=== PATIENT | female | born 1990 | race Caucasian/White ===

== ENCOUNTER 2021-03-12 17:36 | Emergency (ER) | payer BC ==
[~2021-03-12 17:36] MED LIST: AMOXICILLIN/CL875 MG PO; DEBROX6.5 % AU; ERRIN0.35 MG PO; FLONASE NASAL50 MCG; MUCINEX600 MG; MUPIROCIN2 % EX; PHENERGAN SUPP RE
[2021-03-12 18:16] LABS: IMMATURE GRANULOCYTES 0.4 % (0.0-5.0); MEAN CORPUSCULAR HGB 27.6 pG CALC (26.0-32.0); MEAN CORPUSCULAR HGB CONC 33.7 g/dL CAL (32.0-36.0); NEUT# 5.37 thou/uL (2.00-7.15); RED BLOOD COUNT 4.71 mill/uL (4.20-5.60); RED CELL DISTRI WIDTH 12.4 % (11.5-15.5)
[2021-03-12 18:17] LABS: HEMATOCRIT 38.6 % (37.0-47.0)
[2021-03-12 18:28] LABS: ANION GAP 14 (6-22 (CALC)); BUN 14 mg/dL (7-17); BUN/CREATININE RATIO 19 (12-20 (CALC)); CARBON DIOXIDE 23 mmol/l (22-30); CHLORIDE 104 mmol/l (95-108); CREATININE 0.7 mg/dL (0.5-1.0); GFR > 60 ML/MIN (>=60 (CALC)); GFR FOR AFR.AMER. > 60 ML/MIN (>=60 (CALC)); POTASSIUM 3.8 mmol/l (3.5-5.1); SODIUM 138 mmol/l (137-146)
[2021-03-12] MEDS ORDERED: NORVASC5 M1 PO (18:54)
[2021-03-12 20:05] VITALS: BP 164/88
== END 2021-03-12 20:18 | disposition home or self-care (01) | DRG 305 ==
LOC: ED 17:36
PROVIDERS: Family Medicine
DX: I10 Essential (primary) hypertension (principal); Z82.49 Family history of ischemic heart disease and other diseases of the circulatory system; Z82.3 Family history of stroke

== ENCOUNTER 2022-02-26 10:12 | Emergency (ER) | payer BC ==
[~2022-02-26] VITALS: Ht 162.6 cm; Wt 72.0 kg
[~2022-02-26 10:12] MED LIST changes: +NORVASC5 M1 PO
[2022-02-26 10:18] VITALS: BP 168/118
[2022-02-26 10:30] VITALS: BP 133/99
[2022-02-26 11:00] VITALS: BP 132/101
[2022-02-26 11:07] VITALS: BP 132/101
== END 2022-02-26 11:09 | disposition home or self-care (01) | DRG 563 ==
LOC: ED 10:12
DX: S96.911A Strain of unspecified muscle and tendon at ankle and foot level, right foot, initial encounter (principal); W16.622A Jumping or diving into natural body of water striking bottom causing other injury, initial encounter; Y93.11 Activity, swimming; Y92.828 Other wilderness area as the place of occurrence of the external cause